=== PATIENT | female | born 1995 | race Caucasian/White ===

== ENCOUNTER 2020-11-28 15:25 | Outpatient (CLI) | payer OTHER ==
[~2020-11-28 15:25] MED LIST: IBUPROFEN600 MG PO; NORCO 10-325 T1 EACH PO
== END 2020-11-28 17:34 | disposition home or self-care (01) ==
LOC: GENOP 15:25
DX: O99.891 Other specified diseases and conditions complicating pregnancy (principal); R10.2 Pelvic and perineal pain; N89.8 Other specified noninflammatory disorders of vagina; O10.913 Unspecified pre-existing hypertension complicating pregnancy, third trimester; O99.343 Other mental disorders complicating pregnancy, third trimester; F41.9 Anxiety disorder, unspecified; F32.9 Major depressive disorder, single episode, unspecified; O99.353 Diseases of the nervous system complicating pregnancy, third trimester; G50.0 Trigeminal neuralgia; Z87.440 Personal history of urinary (tract) infections; Z91.040 Latex allergy status; Z88.8 Allergy status to other drugs, medicaments and biological substances; Z79.82 Long term (current) use of aspirin; Z79.899 Other long term (current) drug therapy; Z3A.34 34 weeks gestation of pregnancy
CPT/HCPCS: 82962; G0463

== ENCOUNTER 2020-12-26 12:50 | Outpatient (CLI) | payer OTHER ==
[2020-12-26 13:35] LABS: HEMOGLOBIN 11.4 gm/dl (12.3-15.3); RED BLOOD COUNT 3.81 M/UL (4.00-5.10); WHITE BLOOD COUNT 9.6 K/UL (4.5-11.0)
[2020-12-26 13:55] LABS: BUN/CREATININE RATIO 11 (0-10)
== END 2020-12-26 14:05 | disposition home or self-care (01) ==
LOC: GENOP 12:50
PROVIDERS: Obstetrics & Gynecology
DX: Z01.812 Encounter for preprocedural laboratory examination (principal)
CPT/HCPCS: 36415; 80053; 81001; 85025

== ENCOUNTER 2020-12-28 07:24 | Inpatient (IN) | payer OTHER ==
[~2020-12-28] VITALS: Ht 160 cm; Wt 100.7 kg
[2020-12-28] MEDS ORDERED: ASPIRIN EC81 MG PO (07:59)
[2020-12-28] MEDS ORDERED: TIZANIDINE HCL2 MG PO (07:59)
[2020-12-28] MEDS ORDERED: LABETALOL HCL200 MG PO (08:00)
[2020-12-28] MEDS ORDERED: ACTIGALL 300MG300 MG PO (08:02)
[2020-12-28] MEDS ORDERED: LEXAPRO10 MG PO (08:03)
[2020-12-28] MEDS ORDERED: ACETAMINOPHEN500 MG PO (08:03)
[2020-12-28] MEDS ORDERED: LYRICA300 MG PO (08:04)
[2020-12-28] MEDS ORDERED: PRENATABS FA T1 EACH PO (08:04)
[2020-12-28] MEDS ORDERED: IBUPROFEN600 MG PO (11:23)
[2020-12-28] MEDS ORDERED: HYDROCODON-ACE1 EAC6 PO (11:23)
[2020-12-28] MEDS ORDERED: COLACE 100MG C100 MG PO (11:23)
[2020-12-29 05:36] LABS: HEMOGLOBIN 10.2 gm/dl (12.3-15.3)
== END 2020-12-29 15:58 | disposition home or self-care (01) | DRG 786 ==
LOC: OB 07:24
PROVIDERS: ADMIT Obstetrics & Gynecology
PROC: 4A1HXCZ Monitoring of Products of Conception, Cardiac Rate, External Approach (ICD-10-PCS; 2020-12-28)
PROC: 10D00Z1 Extraction of Products of Conception, Low, Open Approach (ICD-10-PCS; principal; 2020-12-28 08:45)
DX: O34.211 Maternal care for low transverse scar from previous cesarean delivery (principal); K83.1 Obstruction of bile duct; O26.62 Liver and biliary tract disorders in childbirth; Z3A.37 37 weeks gestation of pregnancy; Z37.0 Single live birth; O13.4 Gestational [pregnancy-induced] hypertension without significant proteinuria, complicating childbirth; O24.429 Gestational diabetes mellitus in childbirth, unspecified control; O99.62 Diseases of the digestive system complicating childbirth; N73.6 Female pelvic peritoneal adhesions (postinfective); Z20.822 Contact with and (suspected) exposure to COVID-19
CPT/HCPCS: 36415; 80053; 81001; 82800; 82962; 85014; 85018; 85025; C9113; J0690; J1170; J1650; J2274; J2405; J2550; J2590; J7120; U0003